=== PATIENT | male | born 1945 | race Caucasian/White ===

== ENCOUNTER 2016-12-20 09:30 | Inpatient (IN) | payer OTHER ==
[2016-12-23] MEDS ORDERED: morphINE SR 15 MG TAB PO ONE (06:00)
[2016-12-23] MEDS ORDERED: CHLORHEXIDINE GLUC HIBICLENS 118 ML BTL TP ONE (06:00)
[2016-12-23] MEDS ORDERED: CEFUROXIME 1,500 MG in NS 50 ML IV ONE (06:00)
[2016-12-23] MEDS ORDERED: PROPOFOL/EMULSION 500 MG/50 ML BOTTLE IV ONE (09:10)
[2016-12-23] MEDS ORDERED: fentaNYL 100 MCG/2 ML INJ ONE ×5 (09:10→15:56)
[2016-12-23] MEDS ORDERED: LIDOCAINE 1% 2 ML INJ ONE (09:58)
[2016-12-23] MEDS ORDERED: LIDOCAINE 1% 5 ML SDV ID PRN (10:12)
[2016-12-23] MEDS ORDERED: LR 1,000 ML IV ONE (10:12)
[2016-12-23] MEDS ORDERED: BACITRACIN 50,000 UNITS/10 ML SYR IRR ONE (10:15)
[2016-12-23] MEDS ORDERED: BUPIVACAINE/EPI 0.25% 30 ML SDV ONE (10:15)
[2016-12-23] MEDS ORDERED: THROMBIN (BOVINE) 20,000 UNIT VIAL TP ONE (10:15)
[2016-12-23] MEDS ORDERED: ROCURONIUM 50 MG/5 ML VIAL ONE (10:19)
[2016-12-23] MEDS ORDERED: DEXAMETHASONE 4 MG/ML VIAL ONE (10:19)
--- NOTE | 2016-12-23 10:59 | CPEKG ---
Heart Rate: 77 RR Interval: 779 P-R Interval: 172 QRSD Interval: 136 QT Interval: 384 QTC Interval: 435 P Paris: 65 QRS Paris: -29 T Wave Paris: 20 EKG Severity - ABNORMAL ECG - EKG Impression: SINUS RHYTHM EKG Impression: RBBB AND LAFB Electronically Signed By: Tonya Acosta 23-Dec-2016 13:42:07
[2016-12-23] MEDS ORDERED: MIDAZOLAM 2 MG/2 ML VIAL ONE ×2 (11:10→16:37)
[2016-12-23] MEDS ORDERED: HYDROCODONE/APAP 5/325 TAB PO PRN (11:28)
[2016-12-23] MEDS ORDERED: ONDANSETRON DISINTEGRATING 4 MG TAB PO PRN (11:29)
[2016-12-23] MEDS ORDERED: DIAZEPAM 5 MG TAB PO PRN (11:29)
[2016-12-23] MEDS ORDERED: MAGNESIUM HYDROXIDE 30 ML UDCUP PO PRN (11:29)
[2016-12-23] MEDS ORDERED: BISACODYL 10 MG SUPP PR PRN (11:29)
[2016-12-23] MEDS ORDERED: TEMAZEPAM 15 MG CAP PO PRN (11:29)
[2016-12-23] MEDS ORDERED: LACTULOSE 20 GM/30 ML UDCUP PO PRN (11:29)
[2016-12-23] MEDS ORDERED: diphenhydrAMINE 25 MG CAP PO PRN (11:29)
[2016-12-23] MEDS ORDERED: NALOXONE HCL 0.4 MG/ML INJ IVP PRN (11:29)
[2016-12-23] MEDS ORDERED: HYDROmorphONE/DILAUDID 6 MG/30 ML PCA IV PRN (11:29)
[2016-12-23] MEDS ORDERED: ONDANSETRON 4 MG/2 ML VIAL IVP PRN (11:29)
[2016-12-23] MEDS ORDERED: DIAZEPAM 10 MG/2 ML SYR IVP PRN (11:29)
[2016-12-23] MEDS ORDERED: NS W/ 20 KCl/L 1,000 ML IV SCH (11:30)
[2016-12-23] MEDS ORDERED: KETAMINE 100 MG/10 ML SYR ONE (11:34)
[2016-12-23] MEDS ORDERED: PROPOFOL 200 MG/20 ML VIAL ONE (14:03)
[2016-12-23] MEDS ORDERED: ONDANSETRON 4 MG/2 ML VIAL ONE (15:00)
[2016-12-23] MEDS ORDERED: HYDROmorphONE/DILAUDID 1 MG/ML SYR ONE (15:56)
[2016-12-23] MEDS ORDERED: MIDAZOLAM 2 MG/2 ML VIAL IVP ONE (16:45)
--- NOTE | 2016-12-23 17:29 | GOP ---
[f rep st] OPERATIVE REPORT DATE OF OPERATION: 12/23/2016 SURGEON: Justine Flores MD ROOF DESIGNER: Robson Haney PA-C. PREOPERATIVE DIAGNOSIS: 1. Lumbar spondylosis. 2. Lumbar foraminal stenosis L4-5, L5-S1. 3. Bilateral lumbosacral radiculopathy. 4. Axial low back pain. 5. Lumbar degenerative disk disease. POSTOPERATIVE DIAGNOSIS: 1. Lumbar spondylosis. 2. Lumbar foraminal stenosis L4-5, L5-S1. 3. Bilateral lumbosacral radiculopathy. 4. Axial low back pain. 5. Lumbar degenerative disk disease. PROCEDURE PERFORMED: 1. Posterolateral intervertebral arthrodesis with decompressions at L4-5, L5-S1 ([id number], [id number]). 2. Posterior segmental instrumentation, L4, L5, S1. 3. Placement of biomechanical intervertebral device L4-5, L5-S1. 4. Spinal stereotaxy, microscope, same incision bone graft harvest. FINDINGS: ESTIMATED BLOOD LOSS: 250 cc. INDICATIONS: The patient is a 71-year-old gentleman with severe axial low back pain, as well as rig ht buttock pain and radiating left leg pain, who had an MRI demonstrating compression on the right a t L4-5, L5-S1 in the neural foramen from the exiting L4 and L5 nerve roots. It was relatively sever e. There was also left-sided compression, worse at the L5-S1 level of the exiting L5 nerve root due to degenerative disk disease at L5-S1 and collapse of the foramen. I suggested a 2-level fusion to address the bilateral foraminal narrowing and bilateral symptoms. I did not think that wide forami notomies would be useful in this case given the collapse of the neural foramen. Also did not feel t hat this would be all that useful with regard to the axial low back pain. I suggested a 2-level L4- 5, L5-S1 fusion. Explained to him the risk of the procedure, including the risk of adjacent segment disease, pseudoarthrosis, continued symptoms, and possible need for additional surgery. He underst ood that a spinal fusion surgery cannot be done and that this was a reasonable approach to try to el iminate the pain that he was suffering from. He understood the risk of continued symptoms, nerve in jury, spinal fluid leak, infection, pseudoarthrosis, and adjacent segment disease, and he did want t o proceed. He had a prior history of prostate cancer and our intention was not to use any bone morp hogenic protein. DESCRIPTION OF PROCEDURE: Patient was taken to the operating room, placed in supine position. Gene ral anesthesia was begun. He was flipped prone onto the Patrick table. Care was taken to pad all p oints of contact. His back was sterilely prepped and draped in the usual fashion. We made a 6-1/2 cm incision above the L4-5, 5-1 interspace. The subcutaneous tissue was dissected using Bovie caute ry down through the fascia, and a subperiosteal dissection was made down the L5-S1 lamina, as well a s the L4 lamina and the inferior L3 lamina. We shot a localizing x-ray. We denuded the facets bila terally at L4-5, 5-1. We preserved the L3-4 facet. We tested Stealth reference frame, and using fr [employer] Stealth stereotaxy, we placed pedicle screws bilaterally at L4, L5, and the sacrum. The L4 screws had a very lateral to medial trajectory because of the L3-4 facet joint. An O-arm spin was m ly, and the right L4 screw went through the pedicle and was slightly lateral as it entered the vert ebral body. While there was good bony purchase from this screw, we did remove it and repositioned i t more medially within the pedicle. We still had a nice lateral to medial angulation on the screw. Another O-arm spin was made, and the screw was in excellent position. They all stimulated greater than 20 milliamps, even the prior L4 screw stimulated greater than 20 milliamps. We placed 55 mm ro ds down over these screws to distract between L4-5 and L5-S1, and got good yazidism of his normal disk height at each level, particularly at L5-S1. We removed all the soft tissue of the bone at L4 -5, 5-1. We harvested the L5 spinous process and lamina for autologous grafting purposes. We harve sted the inferior L4 spinous process for autologous grafting purposes. We introduced operating micr oscope and performed a left hemilaminectomy at L4-5, 5-1. We also undercut the ligamentum flavum an d got a nice central decompression, and we also indirectly got decompression on the right-hand side, both in the foramen and in the lateral recess. We did not perform radical right-sided laminectomie s, however. We decompressed on the left, completely removing the left facet joints at L4-5, 5-1, de stabilizing the spine. We decompressed the exiting L4 and L5 nerve roots at each level, as well as the S1 root as it traversed L5-S1. We then incised the L4-5 disk, removed the disk and the cartilag inous endplates, and we roughened the subchondral bone to create arthrodesis there. We did likewise from a left-sided approach at L5-S1, where we swept the thecal sac and the S1 root medially. We in cised the L5-S1 disk, removed the disk and the cartilaginous endplates. We roughened the subchondra l bone and created an arthrodesis and we sized each space. We chose a 7 x 20 mm device at L5-S1 and 8 x 28 mm device at L4-5. They were packed with graft on demineralized bone matrix. We then place d bony autograft into the disk space at L4-5, 5-1. We expanded each device under fluoroscopic mary nce. These helped restore of lumbar lordosis at L4-5, 5-1, and we were happy with each d evice and its placement. We decorticated all remaining posterolateral bone to create arthrodesis at L4-5, 5-1. We placed bone autograft posterolaterally bilaterally and laid on top of this graft on material bilaterally. All the screws had been torqued to company specification. A subfascial drain was placed and the incision was closed in multiple layers using Vicryl sutures. Running PDS was pl aced in the skin itself. There were no complications. COMPLICATIONS: None. /[id number]/MODL
[2016-12-23] MEDS ORDERED: DIAZEPAM 10 MG/2 ML SYR ONE (17:57)
[2016-12-23] MEDS: traMADol 50 MG TAB PO SCH ×2 (19:08→20:12)
[2016-12-23] MEDS: oxyCODONE IR 5 MG TAB PO PRN (19:13)
[2016-12-23] MEDS: HYDROmorphONE/DILAUDID 1 MG/ML SYR IVP PRN (19:53)
[2016-12-23] MEDS: metFORMIN HCL 500 MG TAB PO SCH (19:53)
[2016-12-23] MEDS: METHOCARBAMOL 750 MG TAB PO PRN (20:10)
[2016-12-23] MEDS: ROSUVASTATIN CALCIUM 10 MG TAB PO SCH (20:10)
[2016-12-23] MEDS: morphINE SR 15 MG TAB PO SCH (20:12)
[2016-12-23] MEDS: FAMOTIDINE 20 MG TAB PO SCH (20:12)
[2016-12-23] MEDS: SENNOSIDES/DOCUSATE SODIUM TAB PO SCH (20:12)
--- NOTE | 2016-12-23 20:45 | GPROG ---
[f rep st] PROGRESS NOTE This is dictated due to the fact that [facility] was down. SUBJECTIVE: Patient is awake and alert. He is complaining of some expected lower back pain. OBJECTIVE: VITAL SIGNS: Afebrile. Vital signs stable. HEENT: Pupils equal, round, reactive to l ight. EOMIs intact. Cranial nerves 2-12 grossly intact. MOTOR: Patient has 5/5 strength in bilat eral lower extremities. ANTHONY is intact and working. Dressing is clean, dry, and intact. ASSESSMENT/PLAN: The patient is a 71-year-old, who is status post TLIF at L4-5, L5-S1. Patient has ANTHONY in place. He should wear brace whenever out of bed. He was seen and evaluated both by myself and Dr. Flores. The patient is in stable condition and has a pending admission to the [facility] or for further postoperative care. /[id number]/MODL
[2016-12-23] MEDS ORDERED: FAMOTIDINE 20 MG/NACL 50 ML IV SCH (21:00)
[2016-12-24] MEDS: HYDROmorphONE/DILAUDID 1 MG/ML SYR IVP PRN ×2 (02:23→04:44)
[2016-12-24] MEDS: oxyCODONE IR 5 MG TAB PO PRN ×3 (04:44→20:00)
[2016-12-24 05:20] LABS: ANION GAP 9 mEq/L (8-16); CARBON DIOXIDE 24 mEq/l (22-31); CHLORIDE 104 mEq/L (97-110); CREATININE 0.9 mg/dL (0.7-1.3); GLOMERULAR FILTRATION RATE > 60; GLUCOSE 194 mg/dL (70-100); POTASSIUM 5.1 mEq/L (3.5-5.2); SODIUM 137 mEq/L (134-144)
[2016-12-24 05:29] LABS: % IMMATURE GRANULYOCYTES 0.5 % (0.0-1.1); ABSOLUTE IMMATURE GRANULOCYTES 0.06 10^3/uL (0.00-0.10); ADD DIFF? NO; ADD MORPH? NO; ADD SCAN? NO; ATYPICAL LYMPHOCYTE FLAG 10 (0-99); FRAGMENT RBC FLAG 0 (0-99); HEMATOCRIT 37.8 % (40.0-51.0); HEMOGLOBIN 12.4 g/dL (13.7-17.5); LEFT SHIFT FLG 0 (0-99); LIPEMIA HEMOLYSIS FLAG 80 (0-99); MEAN CELL HEMOGLOBIN 29.7 pg (27.9-34.1); MEAN CELL HEMOGLOBIN CONCENTR. 32.8 g/dL (32.4-36.7); MEAN CELL VOLUME 90.6 fL (81.5-99.8); MEAN PLATELET VOLUME 10.1 fL (8.7-11.7); PLATELET CLUMPS FLAG 0 (0-99); PLATELET COUNT 222 10^3/uL (150-400); RED BLOOD CELL COUNT 4.17 10^6/uL (4.40-6.38); RED CELL DISTRIBUTION WIDTH 12.9 % (11.5-15.2)
--- NOTE | 2016-12-24 07:23 | NEUSURGPN ---
Date of Surgery: 12/23/16 Post Op Day: 1 Assessment/Plan: Assessment: 71 yo male that is s/p TLIF at L4/5 and L5/S1 POD #1 Plan: -s/p TLIF L4/5 and L5/S1: Pt with expected lower back pain. LLE still with some twitching symptoms as before -post op xrays pending today -continue with ANTHONY at this time -PT/OT pending -brace when out of bed - and bedside as well and updated -call NS with any changes or issues -red flags discussed -pt understands and agrees Subjective: Awake and alert. NAD. Pt with expected lower back pain. No arzate/neck/chest/abd or gu complaints. Objective: AAO x 3, PERRLA/EOMI no droop CN 2-12 grossly intact +lt touch 5/5 BUE/BLE = CDI Neuro Check Frequency: per routine Urinary Catheter in Place: No Catheter Insertion Date: 12/23/16 - Physician Discussed Patient with .: Mark Patient Seen by : Mark Neurosurgery Physical Exam - Vitals, I&O, Labs I and O 12/23/16 12/24/16 12/25/16 05:59 05:59 05:59 Intake Total 2427 Output Total 3010 Balance -583 Weight 57.606 kg Intake: Oral (ml) 200 IV Intake (ml) 1400 IV Infused (ml) 827 NS W/ 20 KCl/L 1,000 ml @ 722 75 mls/hr IV CONT CHANO Rx #:[id number] ceFAZolin 1 GM/DEXTROSE 105 50 ml @ 200 mls/hr IV Q8H CHANO Rx#:[id number] Output: Urine (ml) 2510 Catheter 2510 Estimated Blood Loss (ml) 50 Wound Drainage (ml) 450 Back Patrick Dueñas 450 Vital Signs Temp Pulse Resp BP Pulse Ox 36.9 C 75 16 149/78 H 96 12/24/16 04:00 12/24/16 04:00 12/24/16 04:00 12/24/16 04:00 12/24/16 04:00 Laboratory Results 12/24/16 04:39 12/24/16 04:39 ICD10 Worksheet Patient Problems: Problems Problem Status Onset Arthrodesis status Acute Lumbar radicular pain Acute Lumbar stenosis Acute - ICD10 Problem Qualifiers (1) Lumbar stenosis (2) Lumbar radicular pain (3) Arthrodesis status
[2016-12-24] MEDS: traMADol 50 MG TAB PO SCH ×3 (08:22→20:00)
[2016-12-24] MEDS: FAMOTIDINE 20 MG TAB PO SCH ×2 (08:22→20:01)
[2016-12-24] MEDS: CETIRIZINE 10 MG TAB PO SCH (08:22)
[2016-12-24] MEDS: SENNOSIDES/DOCUSATE SODIUM TAB PO SCH ×2 (08:22→20:00)
[2016-12-24] MEDS: metFORMIN HCL 500 MG TAB PO SCH ×2 (08:22→17:29)
[2016-12-24] MEDS: morphINE SR 15 MG TAB PO SCH ×2 (08:22→20:00)
[2016-12-24] MEDS ORDERED: FAMOTIDINE 20 MG TAB PO SCH (09:00)
[2016-12-24] MEDS: ACETAMINOPHEN 325 MG TAB PO PRN (13:32)
[2016-12-24] MEDS: ROSUVASTATIN CALCIUM 10 MG TAB PO SCH (20:00)
[2016-12-25] MEDS: ACETAMINOPHEN 325 MG TAB PO PRN ×2 (05:12→09:06)
[2016-12-25] MEDS: oxyCODONE IR 5 MG TAB PO PRN ×2 (05:12→17:58)
--- NOTE | 2016-12-25 08:42 | NEUSURGPN ---
Assessment/Plan: Assessment: 71 yo male that is s/p TLIF at L4/5 and L5/S1 POD #2 Plan: -s/p TLIF L4/5 and L5/S1: Pt with expected lower back pain. LLE still with some twitching symptoms as before -post op xrays show stable hardware -DC ANTHONY drain -PT/OT -brace when out of bed -call NS with any changes or issues -Dispo: later today vs tomorrow pending clinical course Subjective: Pt resting in bed, states he is doing ok. at bedside concerned about being able to help him at home. Objective: AAOx3 NAD VSS MAEx4 Motor 5/5 BLE Incision cdi JPx1 Urinary Catheter in Place: No Catheter Insertion Date: 12/23/16 - Physician Discussed Patient with : Mark Neurosurgery Physical Exam - Vitals, I&O, Labs I and O 12/24/16 12/25/16 12/26/16 05:59 05:59 05:59 Intake Total 2427 300 Output Total 3010 1570 Balance -583 -1270 Weight 57.606 kg Intake: Oral (ml) 200 300 IV Intake (ml) 1400 IV Infused (ml) 827 NS W/ 20 KCl/L 1,000 ml @ 722 75 mls/hr IV CONT CHANO Rx #:[id number] ceFAZolin 1 GM/DEXTROSE 105 50 ml @ 200 mls/hr IV Q8H CHANO Rx#:[id number] Output: Urine (ml) 2510 1250 Catheter 2510 Urinal 1250 Estimated Blood Loss (ml) 50 Wound Drainage (ml) 450 320 Back Patrick Dueñas 450 320 Other: Number of Voids Urinal 2 Vital Signs Temp Pulse Resp BP Pulse Ox 36.8 C 74 18 123/69 H 96 12/25/16 08:00 12/25/16 08:00 12/25/16 08:00 12/25/16 08:00 12/25/16 08:00 Laboratory Results 12/24/16 04:39 12/24/16 04:39 ICD10 Worksheet Patient Problems: Problems Problem Status Onset Arthrodesis status Acute Lumbar radicular pain Acute Lumbar stenosis Acute
[2016-12-25] MEDS: traMADol 50 MG TAB PO SCH ×3 (09:05→21:55)
[2016-12-25] MEDS: morphINE SR 15 MG TAB PO SCH ×2 (09:05→21:54)
[2016-12-25] MEDS: CETIRIZINE 10 MG TAB PO SCH (09:06)
[2016-12-25] MEDS: SENNOSIDES/DOCUSATE SODIUM TAB PO SCH ×2 (09:06→21:55)
[2016-12-25] MEDS: FAMOTIDINE 20 MG TAB PO SCH ×2 (09:06→21:53)
[2016-12-25] MEDS: metFORMIN HCL 500 MG TAB PO SCH ×2 (09:06→16:52)
[2016-12-25] MEDS: POLYETHYLENE GLYCOL 3350 17 GM PKT PO PRN (09:07)
[2016-12-25] MEDS: METHOCARBAMOL 750 MG TAB PO PRN (16:53)
[2016-12-25] MEDS: ROSUVASTATIN CALCIUM 10 MG TAB PO SCH (21:54)
[2016-12-26] MEDS: oxyCODONE IR 5 MG TAB PO PRN ×2 (05:34→11:45)
[2016-12-26 08:08] VITALS: BP 151/76; PULSE 90; RESP 16; TEMP 99.3; O2SAT 93
[2016-12-26] MEDS: traMADol 50 MG TAB PO SCH (08:16)
[2016-12-26] MEDS: morphINE SR 15 MG TAB PO SCH (08:16)
[2016-12-26] MEDS: metFORMIN HCL 500 MG TAB PO SCH (08:17)
[2016-12-26] MEDS: CETIRIZINE 10 MG TAB PO SCH (08:17)
[2016-12-26] MEDS: POLYETHYLENE GLYCOL 3350 17 GM PKT PO PRN ×2 (08:17→08:22)
[2016-12-26] MEDS: METHOCARBAMOL 750 MG TAB PO PRN ×2 (08:17→11:45)
[2016-12-26] MEDS: SENNOSIDES/DOCUSATE SODIUM TAB PO SCH (08:17)
[2016-12-26] MEDS: FAMOTIDINE 20 MG TAB PO SCH (08:17)
[2016-12-26] MEDS ORDERED: ENOXAPARIN 40 MG/0.4 ML SYR SC SCH (09:00)
--- NOTE | 2016-12-26 09:52 | SOAPPROG ---
DEANAP Progress Note Assessment/Plan: Assessment: Assessment: 71 yo male that is s/p TLIF at L4/5 and L5/S1 POD #3 Plan: -s/p TLIF L4/5 and L5/S1: Pt with expected lower back pain. -post op xrays show stable hardware -brace when out of bed -Patient states wants to go today: will d/c -Scripts sent to pharmacy -F/u 2 weeks for incision check 12/26/16 09:49 Subjective: States 8-9/10 but sleeping easily, sitting comfortably in chair and refusing some PRN robaxin and oxycodone when offered. No pain when sitting only when up and moving. Tolerating diet, ambulating brace on. No leg pain. Original back pain resolved. Discussed d/c wih patient and . They are comfortable going home and he insists on d/c. Discussed keeping up with medications particularly robaxin, all questions answered and pleased with plan Objective: Vital Signs Temp Pulse Resp BP Pulse Ox 37.4 C 90 16 151/76 H 93 12/26/16 08:00 12/26/16 08:00 12/26/16 08:00 12/26/16 08:00 12/26/16 08:00 Laboratory Results 12/24/16 04:39 12/24/16 04:39 12/25/16 12/26/16 12/27/16 05:59 05:59 05:59 Intake Total 300 300 Output Total 1570 600 Balance -1270 -300 AandOx3, PERRL, EOMI, MAEWx 4 5/5, +LT, dressing c/d/i - Pending Discharge Pending Discharge Within 24 Hours: Yes Pending Discharge Date: 12/27/16 Pending Discharge Time: 11:00 ICD10 Worksheet Patient Problems: Problems Problem Status Onset Arthrodesis status Acute Lumbar radicular pain Acute Lumbar stenosis Acute
--- NOTE | 2016-12-26 15:06 | PDIAF ---
- Diagnosis Code Status: Full Code - Medication Management Discharge Medications: Medications to Continue on Transfer Aspirin EC [Aspirin EC 81 mg (*)] 81 mg PO DAILY 11/26/16 [Last Taken 12/13/16] Cetirizine [ZyrTEC 10 mg (*)] 10 mg PO DAILY 11/26/16 [Last Taken Unknown] Multivitamins [Multivitamin (*)] 1 each PO DAILY 11/26/16 [Last Taken 12/13/16] Ranitidine HCl [Zantac] 150 mg PO DAILY 11/26/16 [Last Taken Unknown] Rosuvastatin Calcium [Crestor 5mg] 5 mg PO HS 11/26/16 [Last Taken 12/22/16] metFORMIN HCL [Glucophage 500 mg (*)] 500 mg PO BIDMEAL 11/26/16 [Last Taken ] traMADol [Ultram 50 mg (*)] 50 mg PO BID@1800,2100 11/26/16 [Last Taken Unknown] traMADol [Ultram 50 mg (*)] 100 mg PO DAILY@08 11/26/16 [Last Taken 12/22/16] Methocarbamol [Robaxin 750 mg (*)] 750 mg PO QID PRN #0 tab 12/26/16 [Last Taken Unknown] Polyethylene Glycol 3350 [Miralax 17 gm (*)] 17 gm PO DAILY PRN #30 pkt [Last Taken Unknown] Sennosides/Docusate Sodium [Senokot-S] 1 - 2 tab PO BID #60 tab 12/26/16 [Last Taken Unknown] morphINE SR [Ms Contin/Oramorph 15 mg (*)] 15 mg PO BID #0 tab 12/26/16 [Last Taken Unknown] oxyCODONE IR [Oxycodone Ir (*)] 5 mg PO Q3HRS PRN #90 tab 12/26/16 [Last Taken Unknown] Discharge Medications: Refer to the Discharge Home Medication list for PRN reason. - Orders Services needed: Home Care, Registered Nurse, Physical Therapy, Occupational Therapy Home Care Face to Face: I certify that this patient was under my care and that I had the required [id number] encounter meeting the encounter requirements on the discharge day. My findings support the fact that the patient is homebound as defined in CMS Chapter 7 Medicare Benefits Manual 30.1.1, The condition of the patient is such that there exists a normal inability to leave home and consequently, leaving home would require a considerable and taxing effort. Diet Recommendation: no restrictions on diet Diet Texture: Regular Texture Diet Additional: lso brace when out of bed - Follow Up Care Current Providers and Referrals: Dyana Flores MD [Medical Doctor] - Jeri Gandhi [Primary Care Provider] -
== END 2016-12-26 12:05 | disposition home health service (06) | DRG 460 ==
LOC: F3N 12-23 09:46
PROVIDERS: ADMIT Neurological Surgery; ATTEND Neurological Surgery
PROC: 0SB20ZZ Excision of Lumbar Vertebral Disc, Open Approach (ICD-10-PCS; principal; 2016-12-23 11:30)
PROC: 0SG3071 Fusion of Lumbosacral Joint with Autologous Tissue Substitute, Posterior Approach, Posterior Column, Open Approach (ICD-10-PCS; principal; 2016-12-23 11:30)
PROC: 00NY0ZZ Release Lumbar Spinal Cord, Open Approach (ICD-10-PCS; principal; 2016-12-23 11:30)
PROC: 0SG0071 Fusion of Lumbar Vertebral Joint with Autologous Tissue Substitute, Posterior Approach, Posterior Column, Open Approach (ICD-10-PCS; principal; 2016-12-23 11:30)
PROC: 0SG30AJ Fusion of Lumbosacral Joint with Interbody Fusion Device, Posterior Approach, Anterior Column, Open Approach (ICD-10-PCS; principal; 2016-12-23 11:30)
DX: M43.16 Spondylolisthesis, lumbar region (principal); M48.06 Spinal stenosis, lumbar region; M51.36 Other intervertebral disc degeneration, lumbar region; I25.10 Atherosclerotic heart disease of native coronary artery without angina pectoris; Z95.5 Presence of coronary angioplasty implant and graft
CPT/HCPCS: 97116-GP; 97161-GP; 97166-GO; C1713; G8978-GP-CJ; G8979-GP-CI; G8980-GP-CI; G8987-GO-CI; G8988-GO-CI; G8989-GO-CI; J0690; J0697; J1100; J1170; J1650; J2250; J2405; J2704; J3010

== ENCOUNTER → 2017-02-17 | Outpatient (CLI) | payer OTHER | LOC: FIMAGING 13:11 | PROVIDERS: ATTEND Nurse Practitioner | DX: M79.604 Pain in right leg (principal); M79.605 Pain in left leg; Z98.1 Arthrodesis status ==

== ENCOUNTER → 2017-04-29 | Outpatient (CLI) | payer OTHER | LOC: FLAB 10:43 | PROVIDERS: ATTEND Nurse Practitioner | DX: Z08 Encounter for follow-up examination after completed treatment for malignant neoplasm (principal); Z98.1 Arthrodesis status ==

== ENCOUNTER → 2017-07-20 | Outpatient (CLI) | payer OTHER | LOC: FIMAGING 10:37 | PROVIDERS: ATTEND Nurse Practitioner | DX: Z98.1 Arthrodesis status (principal) ==

== ENCOUNTER → 2018-01-20 | Outpatient (CLI) | payer OTHER | LOC: FIMAGING 15:45 | PROVIDERS: ATTEND Nurse Practitioner | DX: M54.5 Low back pain (principal); Z98.1 Arthrodesis status ==

== ENCOUNTER → 2018-05-20 | Outpatient (CLI) | payer OTHER | LOC: FIMAGING 10:15 | PROVIDERS: ATTEND Nurse Practitioner | DX: M41.85 Other forms of scoliosis, thoracolumbar region (principal); M43.16 Spondylolisthesis, lumbar region ==

== ENCOUNTER 2018-05-25 08:15 | Inpatient (IN) | payer OTHER ==
--- NOTE | 2018-05-25 06:52 | PDHPUP ---
History & Physical Update H&P update statement: This history and physical update is based on an assessment of the patient which was completed after admission or registration (within 24 hours), but prior to the surgery/procedure. H&P update: H&P reviewed & patient examined, no change in patient's condition since H&P completed
[~2018-05-25 08:15] MED LIST: CETIRIZINE 10 MG TAB PO PRN; traMADol 50 MG TAB PO PRN
[2018-05-25] MEDS ORDERED: BACITRACIN 50,000 UNITS/10 ML SYR IRR ONE (09:04)
[2018-05-25] MEDS ORDERED: THROMBIN (BOVINE) 20,000 UNIT VIAL TP ONE (09:04)
[2018-05-25] MEDS ORDERED: CHLORHEXIDINE GLUC HIBICLENS 118 ML BTL TP ONE (09:04)
[2018-05-25] MEDS ORDERED: EPINEPHrine 1 MG/ML INJ ONE (09:04)
[2018-05-25] MEDS ORDERED: BUPIVACAINE 0.25% 30 ML SDV ONE (09:04)
[2018-05-25] MEDS ORDERED: ceFAZolin 2 GM/DEXTROSE 100 ML IV ONE (09:34)
[2018-05-25] MEDS ORDERED: GABAPENTIN 300 MG CAP PO ONE (09:34)
[2018-05-25] MEDS ORDERED: ACETAMINOPHEN 500 MG TAB PO ONE (09:34)
[2018-05-25] MEDS ORDERED: LR 1,000 ML IV ONE (09:35)
--- NOTE | 2018-05-25 11:19 | PDANEPAE ---
ANE History of Present Illness ACD and F C 3-4 Zero P C 4-5 Posterior fusion c3 to 7 ANE Past Medical History - Cardiovascular History Hx Hypertension: No Hx Arrhythmias: No Hx Chest Pain: No Hx Coronary Artery / Peripheral Vascular Disease: Yes Hx CHF / Valvular Disease: No Hx Palpitations: No Cardiovascular History Comment: STENT 2014 - Pulmonary History Hx COPD: No Hx Asthma/Reactive Airway Disease: No Hx Recent Upper Respiratory Infection: No Hx Oxygen in Use at Home: No Hx Sleep Apnea: No Sleep Apnea Screening Result - Last Documented: Negative - Neurologic History Hx Cerebrovascular Accident: No Hx Seizures: No Hx Dementia: No Neurologic History Comment: 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 - Endocrine History Hx Diabetes: Yes Hypothyroid: No Hyperthyroid: No Obesity: no Endocrine History Comment: TYPE 2 DIABETES - Renal History Hx Renal Disorders: No Renal History Comment: PREV TURP - Liver History Hx Hepatic Disorders: No - Neurological & Psychiatric Hx Hx Neurological and Psychiatric Disorders: No - Cancer History Hx Cancer: Yes Cancer History Comment: PROSTATE - Congenital Disorder History Hx Congenital Disorders: No - GI History GERD: no, mild Hx Gastrointestinal Disorders: Yes Gastrointestinal History Comment: USES OTC TO REDUCE ACID WHEN TAKING ANTINFLAMMATORY MEDICATIONS - Other Health History Other Health History: LT LOWER EXT TREMOR WHEN LAYS DOWN IT STOPS 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 DDD. STENOSIS - Chronic Pain History Chronic Pain: Yes (NECK,SHLDR TO WRIST) - Surgical History Prior Surgeries: BILATERAL CATARACTS 2018. TLIF 11/2016. CARDIAC STENT 2014. LT ING HERNIA. CERVICAL FUSION. TURP ANE Review of Systems Review of systems is: negative Review of Systems: - Exercise capacity METS (RN): 4 METS ANE Patient History - Allergies Allergies/Adverse Reactions: Penicillins Allergy (Unknown, Verified 11/26/16 15:11) Unknown - Home Medications Home Medications: Aspirin EC [Aspirin EC 81 mg (*)] 81 mg PO DAILY 11/26/16 [Last Taken 05/18/18] Rosuvastatin Calcium [Crestor 5mg] 5 mg PO HS 11/26/16 [Last Taken 05/24/18 19: 00] metFORMIN HCL [Glucophage 500 mg (*)] 500 mg PO BIDMEAL 11/26/16 [Last Taken 08:00] traMADol [Ultram 50 mg (*)] 50 mg PO BID PRN 11/26/16 [Last Taken 05/25/18 06:00 ] Carbidopa/Levodopa 25/100Mg [Sinemet 25/100 MG (*)] 2 tab PO TID@,, [Last Taken 05/25/18 10:30] Cetirizine [ZyrTEC 10 mg (*)] 10 mg PO DAILY PRN 05/10/18 [Last Taken 05/18/18] Diclofenac Sodium [Voltaren 75 MG (*)] 75 mg PO BID 05/10/18 [Last Taken ] Multivitamins [Multivitamin (*)] 1 each PO DAILY 05/10/18 [Last Taken 05/18/18] rOPINIRole HCL [Ropinirole ER] 8 mg PO DAILY 05/10/18 [Last Taken 05/25/18 08:00 ] Omeprazole [Omeprazole] 20 mg PO DAILY 05/25/18 [Last Taken 05/25/18 06:00] - NPO status NPO Status: no food or drink >8 hours NPO Since - Liquids (Date): 05/25/18 NPO Since - Liquids (Time): 06:00 NPO Since - Solids (Date): 05/24/18 NPO Since - Solids (Time): 23:30 - Smoking Hx Smoking Status: Former smoker ANE Labs/Vital Signs - Vital Signs Blood Pressure: 140/79 Heart Rate: 47 Respiratory Rate: 12 O2 Sat (%): 96 Height: 162.56 cm Weight: 58.967 kg ANE Physical Exam - Airway Neck exam: decreased ROM Mallampati Score: Class 2 Mouth exam: normal dental/mouth exam, poor dentition - Pulmonary Pulmonary: no respiratory distress, no rales or rhonchi - Cardiovascular Cardiovascular: regular rate and rhythym, no murmur, rub, or gallop - ASA Status ASA Status: III ANE Anesthesia Plan Anesthesia Plan: general endotracheal anesthesia Specialized Airway: video laryngoscope
[2018-05-25] MEDS ORDERED: MIDAZOLAM 2 MG/2 ML VIAL IVP ONE (11:25)
[2018-05-25] MEDS ORDERED: MIDAZOLAM 2 MG/2 ML VIAL ONE (11:28)
[2018-05-25] MEDS ORDERED: PROPOFOL/EMULSION 500 MG/50 ML BOTTLE IV ONE ×4 (11:38→16:04)
[2018-05-25] MEDS ORDERED: fentaNYL 250 MCG/5 ML INJ ONE ×3 (11:38→16:04)
[2018-05-25] MEDS ORDERED: SUCCINYLCHOLINE CHLORIDE 200 MG/10 ML SYR IVP ONE ×2 (11:46→14:36)
[2018-05-25] MEDS ORDERED: diphenhydrAMINE 25 MG CAP PO PRN (12:16)
[2018-05-25] MEDS ORDERED: BISACODYL 10 MG SUPP PR PRN (12:16)
[2018-05-25] MEDS ORDERED: HYDROCODONE/APAP 5/325 TAB PO PRN (12:16)
[2018-05-25] MEDS ORDERED: ONDANSETRON 4 MG/2 ML VIAL IVP PRN ×2 (12:16→17:31)
[2018-05-25] MEDS ORDERED: POLYETHYLENE GLYCOL 3350 17 GM PKT PO PRN (12:16)
[2018-05-25] MEDS ORDERED: METHOCARBAMOL 750 MG TAB PO PRN (12:16)
[2018-05-25] MEDS ORDERED: morphINE PCA 30 MG/30 ML PCA IV PRN (12:16)
[2018-05-25] MEDS ORDERED: NALOXONE HCL 0.4 MG/ML INJ IVP PRN ×2 (12:16→17:31)
[2018-05-25] MEDS ORDERED: HYDROmorphONE/DILAUDID 1 MG/ML INJ IVP PRN (12:16)
[2018-05-25] MEDS ORDERED: MAGNESIUM HYDROXIDE 30 ML UDCUP PO PRN (12:16)
[2018-05-25] MEDS ORDERED: LACTULOSE 20 GM/30 ML UDCUP PO PRN (12:16)
[2018-05-25] MEDS ORDERED: ONDANSETRON DISINTEGRATING 4 MG TAB PO PRN (12:16)
[2018-05-25] MEDS ORDERED: fentaNYL 100 MCG/2 ML INJ ONE (12:20)
[2018-05-25] MEDS ORDERED: NS 1,000 ML IV SCH (12:30)
[2018-05-25] MEDS ORDERED: ROCURONIUM 50 MG/5 ML VIAL ONE (14:37)
[2018-05-25] MEDS ORDERED: PETROLAT,WHT/MIN OIL/SOD CHL 3.5 GM OPHT.OINT ONE (14:47)
[2018-05-25] MEDS ORDERED: ceFAZolin 1 GM VIAL ONE (15:45)
[2018-05-25] MEDS ORDERED: HYDROmorphONE/DILAUDID 2 MG/ML INJ ONE (16:53)
[2018-05-25] MEDS ORDERED: ONDANSETRON 4 MG/2 ML VIAL ONE (17:25)
[2018-05-25] MEDS ORDERED: HYDROmorphONE/DILAUDID 2 MG/ML INJ IVP PRN (17:31)
[2018-05-25] MEDS ORDERED: fentaNYL 100 MCG/2 ML INJ IVP PRN (17:31)
[2018-05-25] MEDS ORDERED: PROMETHAZINE HCL 25 MG/ML INJ IVP PRN (17:31)
[2018-05-25] MEDS ORDERED: DIAZEPAM 5 MG/ML 1 ML SYR IVP PRN (17:31)
--- NOTE | 2018-05-25 18:08 | POSTOPPROG ---
Post Op Note Date of Operation: 05/25/18 Surgeon: Dyana Flores Engineer Steam: [place]ina Anesthesiologist: Fan Anesthesia: GET(General Endotracheal), Local (Specify) Pre-op Diagnosis: cervical stenosis, instability, cord compression Post-op Diagnosis: cervical stenosis, instability, cord compression Indication: RUE pain, neck pain Procedure: ACDF C3-C5 with PSF C3-C7 Findings: none Inf/Abcess present in the surg proc area at time of surgery?: No Depth: Deep Incisional (Fascial) EBL: 100-500 Total fluids administered: see anesthesia record Complications: none Drains: Patrick Dueñas (posterior cervical)
[2018-05-25] MEDS ORDERED: D50W 25 GM/50 ML SYR IVP PRN (18:11)
--- NOTE | 2018-05-25 18:11 | SOAPPROG ---
SOAP Progress Note Assessment/Plan: Post Op Visit S: Awake and alert. NAD. Pt with expected neck pain O: AFVSS/PERRLA/EOMI no droop CN 2-12 grossly intact +lt touch 5/5 BUE/BLE = CDI x 2 A/P: 73 yo male that is s/p ACDF C3/4 and C4/5 with PSF C3-C7 -orders in place -call with any questions or concerns -wear collar as directed -pt seen by Dr Flores as well -xrays in am -PT/OT/ST ordered 05/25/18 18:08 Objective: Vital Signs Temp Pulse Resp BP Pulse Ox 37.1 C 47 L 12 140/79 H 96 05/25/18 10:58 05/25/18 11:22 05/25/18 11:22 05/25/18 11:22 05/25/18 11:22 ICD10 Worksheet Patient Problems: Problems Problem Status Onset Cervical radicular pain Acute Cervical spinal stenosis Acute Arthrodesis status Acute Lumbar radicular pain Acute Lumbar stenosis Acute - ICD10 Problem Qualifiers (1) Cervical spinal stenosis (2) Cervical radicular pain
[2018-05-25] MEDS ORDERED: LABETALOL HCL 5 MG/ML 20 ML MDV IVP PRN (18:53)
[2018-05-25] MEDS: FAMOTIDINE 20 MG TAB PO SCH (20:46)
[2018-05-25] MEDS: ceFAZolin 2 GM/DEXTROSE 100 ML IV SCH (20:46)
[2018-05-25] MEDS: SENNOSIDES/DOCUSATE SODIUM TAB PO SCH (20:46)
[2018-05-25] MEDS: oxyCODONE IR 5 MG TAB PO PRN (21:41)
[2018-05-25] MEDS: ACETAMINOPHEN 500 MG TAB PO SCH ×2 (21:42→22:12)
[2018-05-25] MEDS: GABAPENTIN 300 MG CAP PO SCH ×2 (21:42→22:13)
[2018-05-25] MEDS: INSULIN REGULAR HUMAN 100 UNIT/ML UNIT SC SCH (21:42)
[2018-05-25] MEDS: CARBIDOPA/LEVODOPA 25 MG/100 MG TAB PO SCH (22:12)
[2018-05-25] MEDS: metFORMIN HCL 500 MG TAB PO SCH (22:12)
[2018-05-25] MEDS: ROPINIROLE HCL 8 MG PO SCH (22:12)
[2018-05-26] MEDS: ACETAMINOPHEN 500 MG TAB PO SCH ×3 (05:05→21:35)
[2018-05-26] MEDS: ceFAZolin 2 GM/DEXTROSE 100 ML IV SCH (05:05)
[2018-05-26] MEDS: GABAPENTIN 300 MG CAP PO SCH ×4 (05:08→21:36)
[2018-05-26 05:53] LABS: PLATELET COUNT 232 10^3/uL (150-400)
[2018-05-26] MEDS: CARBIDOPA/LEVODOPA 25 MG/100 MG TAB PO SCH ×3 (06:31→17:45)
--- NOTE | 2018-05-26 06:34 | GOP ---
DATE OF OPERATION: 05/25/2018 SURGEON: Justine Flores MD NEUROSURGEON: Justine Flores MD ELECTRONIC PAGE MAKEUP SYSTEM OPERATOR: Robson Haney PA-C PREOPERATIVE DIAGNOSIS: Cervical spondylosis. Cervical stenosis. Prior cervical fusion C5-6 and C6 -7. Right cervical radiculopathy. 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 POSTOPERATIVE DIAGNOSIS: Cervical spondylosis. Cervical stenosis. Prior cervical fusion C5-6 and C 6-7. Right cervical radiculopathy. 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 PROCEDURE PERFORMED: Posterior cervical fusion C3, C4, C5, C6, C7 (30160, 14340 x3), same incision b one graft harvest, right cervical foraminotomy and decompression of the exiting C6 nerve root at C5-6 on the right-hand side with facetectomy, spinal stereotaxy, posterior cervical segmental instrumenta tion C3, C4, C5, C7. FINDINGS: ESTIMATED BLOOD LOSS: 150 cc. INDICATIONS: For the procedure: Please see the accompanying dictation for prior surgery on the same patient, the same day, for the indications for this procedure. DESCRIPTION OF PROCEDURE: The patient was placed in the [place] head frame after the anterior proce dure was done and he was then flipped onto the Patrick table. It was a different operating room tab e. He was carefully positioned. His arms were tucked at his sides, and the head was fixed to the [facility] table with the neck in a relatively neutral position and occiput flexed. He was sterilely prep ped and draped in the usual fashion. We opened skin in the midline. The patient had desired for me to remove a small nodule in the right suboccipital region in the area of our incision, and I told crispin t we would do this. I thought it was actually a subcutaneous lymph node. However, after prepping th e patient and carefully looking at his skin, it appeared that this actually could be a sebaceous cyst . There were telltale signs of a single hair follicle that may communicate with the subcutaneous nod ule. There was nothing expressible. It was not a clear open comedone present, but I thought there wa s actually a possible connection of this subcutaneous mass to the outside skin, and I therefore aband oned any thoughts of removing this mass. I thought it would contaminate the surgical field. The inc ision, however, was right adjacent to it, although we never entered the mass during the procedure. W e did have to be careful about how the skin was resutured closed in this region because of the mass, again with the assumption being that it could be a contaminated sebaceous cyst. Nevertheless, we mad e a midline incision, avoiding the mass. The subcutaneous tissue was dissected using Bovie cautery d own through the fascia, and a subperiosteal dissection was made down the inferior C2 lamina. The C3, C4, C5, C6, C7 lamina was exposed. The rostral aspect of T1 was exposed. There were hypertrophic a nd arthritic facet joints on the right at C3-4, C4-5, and even C5-6, consistent with my presumption o f pseudarthrosis. We denuded these hypertrophic facet joints. There were similar findings on the le ft, but the right side was much worse. We attached the [place] reference frame to the C7 spinous pro cess, performed an O-arm spin, and using frameless [place] stereotaxy, placed pedicle screws bilatera lly at C7. They were in excellent position. There was good bony purchase. We then placed lateral m ass screws at C3, C4, and C5. We had considered placing them at C6-7, but on the lateral mass trajec tory at C6 combined with the C7 pedicle screws, it was unfavorable, and we decided to leave them out at C6. We performed an O-arm spin after placing the lateral mass screws. All the screws were in exc ellent position except for the right C4 screw. It had migrated just rostral into the C3-4 facet join t. We therefore removed this screw and simply replaced it lower in the lateral mass, and I was happy with its final position. We then harvested the spinous processes for autologous grafting purposes a nd decorticated all posterolateral bone from C3-C7 to get a posterolateral arthrodesis at C3-4, C4-5, C5-6, C6-7. We then performed a right-sided foraminotomy at C5-6, performed a lateral laminotomy, a nd then a partial facetectomy following the C6 nerve root all the way out into the neural foramen, an d there was foraminal stenosis to the right C6 nerve root. It was totally decompressed after the for aminotomy was completed. We then placed curvilinear rods down over the . They were about 55 mm in length, and we increased the bend in the stephanie to fit the lateral mass to the pedicle screw tr ajectories. We placed cap screws down over these rods and torqued them according to company specific ation at each level. We then placed bone autograft and BMP posterolaterally bilaterally. Most of bon e autograft was placed in the left C5-C6 to try to get arthrodesis of the pseudoarthrosis level. A s ubfascial drain was placed and tunneled inferiorly. We then closed the incision in multiple layers u sing Vicryl sutures. Steri-Strips were applied to the skin. The patient was reversed from anesthesi a, extubated, and transferred to the recovery room in stable condition. There were no complications. COMPLICATIONS: None. /[id number]/MODL
--- NOTE | 2018-05-26 07:41 | GOP ---
DATE OF OPERATION: SURGEON: Justine Flores MD NEUROSURGEON: Justine Flores MD. RETAIL SALES CLERK: Robson Haney PA-C. PREOPERATIVE DIAGNOSIS: Cervical spondylosis, prior anterior cervical diskectomy and fusion at C5-6, C6-7, probable pseudarthrosis at C5-6, severe right cervical radiculopathy, cervical stenosis C3-4, C4-5. POSTOPERATIVE DIAGNOSIS: Cervical spondylosis, prior anterior cervical diskectomy and fusion at C5-6 , C6-7, probable pseudarthrosis at C5-6, severe right cervical radiculopathy, cervical stenosis C3-4, C4-5. PROCEDURE PERFORMED: Anterior cervical diskectomy C3-4, C4-5 with arthrodesis and decompression at t hese 2 levels (02217, [id number]), removal of anterior instrumentation at C5, placement of biomechanical i ntervertebral device C3-4, C4-5, anterior cervical plate at C3, C4, C5 ([id number]), microscope. FINDINGS: ESTIMATED BLOOD LOSS: 50 cc. INDICATIONS: The patient is an elderly gentleman with Parkinson disease who has undergone prior spin e surgery with good results, who had a prior ACDF at C5-6, C6-7, and he developed terrible pain in th e right arm. An MRI demonstrated a large left disk herniation at C3-4, but there was evidence of for aminal stenosis at C3-4, C4-5. The largest disk herniation was actually on the left at C4-5. There was evidence of pseudoarthrosis on his x-ray, and I felt that he probably had a pseudoarthrosis at C5 -6, although it was stable, but there was some right foraminal stenosis. I suggested an anterior cer vical diskectomy and fusion at C3-4, C4-5, followed by posterior cervical fusion from C3 to C7 to ens ure that we achieved arthrodesis at both of the new levels C3-4, C4-5, but also at the level of the s uspected pseudarthrosis. The risks of nerve injury, spinal fluid leak, major vascular injury, esopha geal injury, carotid injury, recurrent laryngeal nerve injury, pseudoarthrosis and the need for addit ional surgery, as well as the risk of severe dysphagia were discussed. He knew these were possibilit ies. He wanted to proceed despite the risks. DESCRIPTION OF PROCEDURE: The patient was taken to the operating room, placed in supine position. G eneral anesthesia was begun. He was placed on the operating room table in the supine position. A mi dline shoulder roll was placed. Care was taken to pad all points of contact. His neck was sterilely prepped and draped in the usual fashion, and we made a transverse incision in the rostral neck creas e on the right-hand side. The subcutaneous tissue was dissecting out using the plasma blade down thr ough the platysma, and then we used a combination of sharp and blunt dissection medial to the sternoc leidomastoid and lateral to the strap muscles to work our way down to the prevertebral space. The pr ior plate and its hardware were exposed. We then exposed the 2 cervical levels above the plate, C3-4 , C4-5. We mobilized his esophagus up off the prior plate, and we dissected the scar tissue off the plate across C5. We removed the screws from the vertebral body at C5. We then took a carbide drill bit and cut across the [place] plate and removed the rostral half of the plate using large amounts of irrigation. This allowed exposure of the 2 rostral screws for C5 and might facilitate our new hardwa re. After taking time to do this, we then prepared the ventral surface of the vertebral body for acc eptance of our new plate from C3 to C4 to C5. We placed distraction pins at C3 and C5, distracted C3 to C5, and then removed the disks at C3-4, C4-5. We removed the disks completely and the cartilagin ous endplates. At C3-4, we drilled and harvested subchondral bone for autologous grafting purposes. We then opened the posterior longitudinal ligament, and under the microscope, we decompressed the th ecal sac and the neural foramen on both sides, identified the exiting C4 nerve roots. it was a strai ght forward dissection. His vertebral bodies were somewhat small, so we chose the smaller interverte bral devices manufactured by [employer]. We chose a 7 x 14 x 11 mm anatomic PTC cage. It was inserte d at C3-4 after being packed with large amounts of bone autograft. We then did likewise at C4-5 wher e we removed the disk and the cartilaginous endplates. We drilled and harvested subchondral bone to create arthrodesis at this level. We opened the posterior longitudinal ligament and decompressed the thecal sac. At this level, there was a very large left-sided disk herniation, but there was also fo raminal stenosis on the patient's right-hand side, and we treated this and decompressed the exiting C 5 nerve roots. We then chose a 6 mm x 11 x 14 mm anatomic PTC cage by [employer] and packed it with a utologous bone dust and inserted it at C5-6. I was happy with the fit of these implants. I chose a 39 mm plate. It was a [employer]pex [employer] Zevo plate, and sat it across the spine from C3 down to C5. We used 15 mm screws. The screw on the surgeon's right side, but the patient's left side at C5 on x-ray otilia eared slightly long. Because of the patient's anatomy, this screw was removed and wasted. It was a bicortical screws. It was 15 mm, and we replaced it with a 13 mm screw that looked better. We were happy with this. We locked all the screws according to company specification and verified this with the people in the room. We then achieved meticulous hemostasis, placed some Marcaine with epinephrin e in the prevertebral space, and then closed the incision in multiple layers using Vicryl sutures. S gary-Strips were applied the skin, and a dressing was applied, and this concluded procedure #1. COMPLICATIONS: None. /[id number]/MODL
--- NOTE | 2018-05-26 08:02 | NEUSURGPN ---
Date of Surgery: 05/25/18 Post Op Day: 1 Assessment/Plan: Assessment: 73 yo male that is s/p ACDF C3/4 and C4/5 with PSF C3-C7 POD #1 Plan: -s/p A/P cervical fusion: doing well, rested well last night. Pt is hungry and "wants to eat" -ok to advance diet as tolerated with ST -orders in place -call with any questions or concerns -wear collar as directed -pt seen by Dr Flores as well -xrays this am -PT/OT/ST ordered -pt and updated Subjective: Awake and alert. NAD. Eating/drinking and voiding. No f/c/n/v/d. No arzate/cp/ sob/abd or gu complaints. Objective: AFVSS/PERRLA/EOMI no droop CN 2-12 grossly intact +lt touch 5/5 BUE/BLE = CDI x 2 neck soft and supple ANTHONY in place Neuro Check Frequency: per routine Urinary Catheter in Place: No Catheter Insertion Date: 05/25/18 - Physician Discussed Patient with Dr.: Mark Patient Seen by : Mark Neurosurgery Physical Exam - Vitals, I&O, Labs I and O 05/25/18 05/26/18 05/27/18 05:59 05:59 05:59 Intake Total 1920 Output Total 2190 Balance -270 Weight 58.967 kg Intake: Oral (ml) 920 IV Intake (ml) 200 IV Infused (ml) 800 Ns 1,000 ml @ 75 mls/hr 580 IV CONT CHANO Rx#: [id number] ceFAZolin 2 GM/DEXTROSE 220 100 ml @ 200 mls/hr IV Q8H CHANO Rx#:[id number] Output: Urine (ml) 2050 Catheter 2050 ANTHONY Drain Output (ml) 140 #1 Neck Patrick Dueñas 60 #1 Posterior Knee 80 Vital Signs Temp Pulse Resp BP Pulse Ox 36.8 C 77 16 135/69 H 93 05/26/18 04:43 05/26/18 04:43 05/26/18 04:43 05/26/18 04:43 05/26/18 04:43 Laboratory Results 05/26/18 04:26 05/26/18 04:26 ICD10 Worksheet Patient Problems: Problems Problem Status Onset Cervical radicular pain Acute Cervical spinal stenosis Acute Arthrodesis status Acute Lumbar radicular pain Acute Lumbar stenosis Acute - ICD10 Problem Qualifiers (1) Cervical spinal stenosis (2) Cervical radicular pain
[2018-05-26] MEDS: SENNOSIDES/DOCUSATE SODIUM TAB PO SCH ×2 (08:56→21:35)
[2018-05-26] MEDS: PANTOPRAZOLE SODIUM 40 MG TAB PO SCH (08:56)
[2018-05-26] MEDS: FAMOTIDINE 20 MG TAB PO SCH ×2 (08:56→21:35)
[2018-05-26] MEDS: metFORMIN HCL 500 MG TAB PO SCH ×2 (08:56→17:11)
[2018-05-26] MEDS: INSULIN REGULAR HUMAN 100 UNIT/ML UNIT SC SCH ×4 (09:16→21:34)
[2018-05-26] MEDS: ROSUVASTATIN CALCIUM 10 MG TAB PO SCH ×2 (09:16→21:35)
--- NOTE | 2018-05-26 10:01 | PDMN ---
Medical Necessity Medical necessity: Pt meets INPT criteria per MD and [facility] S-[facility] Cervical Fusion, Posterior (est. LOS >2 MN s/p ACDF C3/4 and C4/5 with PSF C3-C7).
--- NOTE | 2018-05-26 10:27 | POSTANESTH ---
Post Anesthetic Evaluation Cardiovascular Status: Normal, Stable Respiratory Status: Normal, Stable Level of Consciousness/Mental Status: Can Participate in Eval Pain Control: Adequate, Prn Tx Ordered Nausea/Vomiting Control: Adequate, Prn Tx Ordered Complications Possibly Related to Anesthesia: None Noted
--- NOTE | 2018-05-26 10:29 | ASMTCMCOM ---
CM Note CM Note Notes: Spoke with pt in the rm and with pt's RN. Pt lives independently with and was admitted for cervical fusion surgery on 05/25. Therapies have not yet evaluated, but surgeon has prearranged for [facility] if pt desires. Pt stated he had positive experience with home therapy in the past and would be interested. [facility] promotions representative to meet with patient today. Referral sent. Disposition pending therapy eval. D/C Plan: [facility] Independent v [facility] Date Signed: 05/26/2018 10:28 AM Electronically Signed By:Caitlyn Shelton
[2018-05-26] MEDS: ROPINIROLE HCL 8 MG PO SCH (14:30)
[2018-05-26] MEDS: oxyCODONE IR 5 MG TAB PO PRN (23:41)
[2018-05-27] MEDS: CARBIDOPA/LEVODOPA 25 MG/100 MG TAB PO SCH ×3 (06:27→17:50)
[2018-05-27] MEDS: ACETAMINOPHEN 500 MG TAB PO SCH ×3 (06:27→22:30)
[2018-05-27] MEDS: GABAPENTIN 300 MG CAP PO SCH ×3 (06:28→23:40)
[2018-05-27] MEDS: oxyCODONE IR 5 MG TAB PO PRN ×2 (06:29→22:31)
[2018-05-27] MEDS ORDERED: DIAZEPAM 2 MG TAB PO PRN (08:03)
--- NOTE | 2018-05-27 08:05 | NEUSURGPN ---
Assessment/Plan: Assessment: 73 yo male that is s/p ACDF C3/4 and C4/5 with PSF C3-C7 POD #2 Plan: -s/p A/P cervical fusion: doing well, having some posterior neck pain and phlegm -ok to advance diet as tolerated with ST -Add ice pack and low dose valium for posterior neck pain -DC ANTHONY drain per Dr Cochran -call with any questions or concerns -wear collar as directed -pt d/w Dr Cochran as well -xrays show stable hardware -TEDS, SCDs on -PT/OT/ST ordered -pt and updated -Dispo: likely home tomorrow pending clinical course Subjective: Pt resting in chair, c/o posterior neck pain and has a lot of phlegm Objective: AAOx3 NAD VSS MAEx4 Motor 5/5 BUE C collar on JPx1 Incisions dressed Urinary Catheter in Place: No Catheter Insertion Date: 05/25/18 - Physician Discussed Patient with : Mark Neurosurgery Physical Exam - Vitals, I&O, Labs I and O 05/26/18 05/27/18 05/28/18 05:59 05:59 05:59 Intake Total 1920 2400 Output Total 2190 675 Balance -270 1725 Weight 58.967 kg 58.967 kg Intake: Oral (ml) 920 2400 IV Intake (ml) 200 IV Infused (ml) 800 Ns 1,000 ml @ 75 mls/hr 580 IV CONT CHANO Rx#: [id number] ceFAZolin 2 GM/DEXTROSE 220 100 ml @ 200 mls/hr IV Q8H CHANO Rx#:[id number] Output: Urine (ml) 2050 600 Catheter 2050 Urinal 600 ANTHONY Drain Output (ml) 140 75 #1 Neck Patrick Dueñas 60 75 #1 Posterior Knee 80 Other: Intake Quantity Yes Sufficient Number of Voids Toilet 2 Urinal 1 Vital Signs Temp Pulse Resp BP Pulse Ox 36.8 C 80 17 139/81 H 92 05/27/18 07:49 05/27/18 07:49 05/27/18 07:49 05/27/18 07:49 05/27/18 07:49 Laboratory Results 05/26/18 04:26 05/26/18 04:26 ICD10 Worksheet Patient Problems: Problems Problem Status Onset Cervical radicular pain Acute Cervical spinal stenosis Acute Arthrodesis status Acute Lumbar radicular pain Acute Lumbar stenosis Acute
[2018-05-27] MEDS: PANTOPRAZOLE SODIUM 40 MG TAB PO SCH (08:32)
[2018-05-27] MEDS: ROPINIROLE HCL 8 MG PO SCH (08:32)
[2018-05-27] MEDS: metFORMIN HCL 500 MG TAB PO SCH ×2 (08:32→17:50)
[2018-05-27] MEDS: SENNOSIDES/DOCUSATE SODIUM TAB PO SCH ×2 (08:32→23:39)
[2018-05-27] MEDS: FAMOTIDINE 20 MG TAB PO SCH ×2 (08:33→23:39)
[2018-05-27] MEDS: INSULIN REGULAR HUMAN 100 UNIT/ML UNIT SC SCH ×4 (08:33→23:39)
[2018-05-27] MEDS ORDERED: guaiFENesin 600 MG TAB.ER PO PRN (14:21)
--- NOTE | 2018-05-27 16:27 | ASMTCMCOM ---
CM Note CM Note Notes: D/c plan remains home with [facility], no orders needed at [facility] has protocol with MD office. CM to follow. Date Signed: 05/27/2018 04:26 PM Electronically Signed By:JUNIOR Galicia
[2018-05-27] MEDS: ROSUVASTATIN CALCIUM 10 MG TAB PO SCH (22:31)
[2018-05-28] MEDS: GABAPENTIN 300 MG CAP PO SCH (06:29)
[2018-05-28] MEDS: ACETAMINOPHEN 500 MG TAB PO SCH (06:30)
[2018-05-28] MEDS: CARBIDOPA/LEVODOPA 25 MG/100 MG TAB PO SCH ×2 (06:30→12:26)
[2018-05-28] MEDS: oxyCODONE IR 5 MG TAB PO PRN (06:35)
[2018-05-28 08:01] VITALS: BP 138/74
[2018-05-28] MEDS: INSULIN REGULAR HUMAN 100 UNIT/ML UNIT SC SCH (08:58)
[2018-05-28] MEDS ORDERED: ENOXAPARIN 40 MG/0.4 ML SYR SC SCH (09:00)
[2018-05-28] MEDS: metFORMIN HCL 500 MG TAB PO SCH (09:01)
[2018-05-28] MEDS: FAMOTIDINE 20 MG TAB PO SCH (09:02)
[2018-05-28] MEDS: PANTOPRAZOLE SODIUM 40 MG TAB PO SCH (09:03)
[2018-05-28] MEDS: ROPINIROLE HCL 8 MG PO SCH (09:04)
[2018-05-28] MEDS: SENNOSIDES/DOCUSATE SODIUM TAB PO SCH (09:07)
--- NOTE | 2018-05-28 10:27 | NEUSURGPN ---
Date of Surgery: 05/25/18 Post Op Day: 3 Assessment/Plan: Assessment: 73 yo male that is s/p ACDF C3/4 and C4/5 with PSF C3-C7 POD #3 Plan: -Add ice pack and low dose Valium for posterior neck pain -wear collar as directed -pt d/w Dr Flores as well -xrays show stable hardware -TEDS, SCDs -PT/OT/ST ordered -DC home today Discussed patient with Dr Flores Subjective: Sitting in chair, doing well Objective: AxO x4 PERRLA 5/5 BUE, BLE Incisions x2 CDI, dried blood drainage on posterior steri strips Collar in place Neuro Check Frequency: per routine Urinary Catheter in Place: No Catheter Insertion Date: 05/25/18 - Physician Discussed Patient with : Mark Neurosurgery Physical Exam - Vitals, I&O, Labs I and O 05/27/18 05/28/18 05/29/18 05:59 05:59 05:59 Intake Total 2400 1500 Output Total 675 25 Balance 1725 1475 Weight 58.967 kg Intake: Oral (ml) 2400 1500 Output: Urine (ml) 600 Urinal 600 ANTHONY Drain Output (ml) 75 25 #1 Neck Patrick Dueñas 75 25 Other: Intake Quantity Yes Yes Sufficient Number of Voids Toilet 2 3 Urinal 1 Vital Signs Temp Pulse Resp BP Pulse Ox 37.0 C 92 16 138/74 H 93 05/28/18 08:00 05/28/18 08:00 05/28/18 08:00 05/28/18 08:00 05/28/18 08:00 Laboratory Results 05/26/18 04:26 05/26/18 04:26 ICD10 Worksheet Patient Problems: Problems Problem Status Onset Cervical radicular pain Acute Cervical spinal stenosis Acute Arthrodesis status Acute Lumbar radicular pain Acute Lumbar stenosis Acute
--- NOTE | 2018-05-28 10:33 | PDIAF ---
- Diagnosis Diagnosis: S/P ACDF C3-4 adn C4-5 with PSF C3-7 Code Status: Full Code - Medication Management Discharge Medications: Medications to Continue on Transfer Aspirin EC [Aspirin EC 81 mg (*)] 81 mg PO DAILY 11/26/16 [Last Taken 05/18/18] Rosuvastatin Calcium [Crestor 5mg] 5 mg PO HS 11/26/16 [Last Taken 05/24/18 19: 00] metFORMIN HCL [Glucophage 500 mg (*)] 500 mg PO BIDMEAL 11/26/16 [Last Taken 08:00] Carbidopa/Levodopa 25/100Mg [Sinemet 25/100 MG (*)] 2 tab PO TID@, [Last Taken 05/25/18 10:30] Cetirizine [ZyrTEC 10 mg (*)] 10 mg PO DAILY PRN 05/10/18 [Last Taken 05/18/18] Multivitamins [Multivitamin (*)] 1 each PO DAILY 05/10/18 [Last Taken 05/18/18] rOPINIRole HCL [Ropinirole ER] 8 mg PO DAILY 05/10/18 [Last Taken 05/25/18 08:00 ] Omeprazole 20 mg PO DAILY 05/25/18 [Last Taken 05/25/18 06:00] Acetaminophen [Tylenol ES 500 mg (*)] 1,000 mg PO Q8HRS tab 05/28/18 [Last Taken Unknown] Diazepam [Valium 2 MG (*)] 2 mg PO Q6HRS PRN #60 tab 05/28/18 [Last Taken Unknown] Sennosides/Docusate Sodium [Senokot-S] 1 - 2 tab PO BID tab 05/28/18 [Last Taken Unknown] oxyCODONE IR [Oxycodone Ir (*)] 5 - 10 mg PO Q4HRS PRN #60 tab 05/28/18 [Last Taken Unknown] Discharge Medications: Refer to the Discharge Home Medication list for PRN reason. PICC Care - Routine: N/A - Orders Services needed: Home Care, Certified Injury Prevention Coordinator, Physical Therapy, Occupational Therapy Home Care Face to Face: I certify that this patient was under my care and that I had the required [id number] encounter meeting the encounter requirements on the discharge day. My findings support the fact that the patient is homebound as defined in Home Care Face to Face Continued: CMS Chapter 7 Medicare Benefits Manual 30.1.1 , The condition of the patient is such that there exists a normal inability to leave home and consequently, leaving home would require a considerable and taxing effort. Diet Texture: Regular Texture Diet, Thin Liquids, Meds Whole w/Liquids Activity/Weight Bearing Restrictions: No bending or twisting neck. Do not lift greater than 10 pounds. Wear collar Additional Instructions: No bending or twisting neck Do not lift greater than 10 pounds Wear collar at all times Ok to shower, leave steri strips in place - Follow Up Care Current Providers and Referrals: Jeri Gandhi [Primary Care Provider] - Dyana Flores MD [Medical Doctor] - follow up in 2 weeks
--- NOTE | 2018-05-28 11:48 | ASDISCHSUM ---
Discharge Information Plan Status:Home with Home Health Medically Cleared to Leave:05/28/2018 Discharge Date:05/28/2018 CM D/C Disposition:Home Health Service ADT D/C Disposition:[id number] Projected Discharge Date:05/27/2018 11:00 AM Transportation at D/C:Family Discharge Delay Reason: Follow-Up Date:05/27/2018 11:00 AM Discharge Slot: Final Diagnosis:Cervical Stenosis Placement Information Referral Type:*Home Health Care Services Referral ID:[id number] Provider Name:[facility] ([facility] Address 1:[address] [address] Address 2: City:[place] Selection Factors: State:[place] Patient Contact Information Contact Name:MARISOL Relationship: Address:[address] Work Phone: City:[place] Alternate Phone: State/Zip Code:[place] [address] Email: Financial Information Financial Class:Medicare Primary Plan Desc:MEDICARE INPATIENT Primary Plan Number:[id number] Secondary Plan Desc:[facility] LOC[facility] Secondary Plan Number:[id number] Assessment Information LACE LACE Length of stay for Answers: 3 days current admission Acuity / Level of Answers: Yes Care: Did the patient have an inpatient admission? Comorbidities - select Answers: Any tumor (including all that apply lymphoma or leukemia) Coronary Artery Disease Diabetes (uncontrolled or controlled) Opioid dependence / Chronic pain Other Notes: Parkinson's disease, cervical stenosis # of Emergency department Answers: 0 visits in the last 6 months Score: 16 Date Signed: 05/28/2018 11:46 AM Electronically Signed By:Caitlyn Shelton [facility] Progress Note CM Note CM Note Notes: Spoke with pt in the and with pt's RN. Pt lives independently with and was admitted for cervical fusion surgery on 05/25. Therapies have not yet evaluated, but surgeon has prearranged for [facility] if pt desires. Pt stated he had positive experience with home therapy in the past and would be interested. [facility] hardware supplies sales representative to meet with patient today. Referral sent. Disposition pending therapy eval. D/C Plan: TBD Independent v [facility] Date Signed: 05/26/2018 10:28 AM Electronically Signed By:Caitlyn Shelton [facility] CM Progress Note CM Note CM Note Notes: D/c plan remains home with [facility], no orders needed at [facility] has protocol with MD office. CM to follow. Date Signed: 05/27/2018 04:26 PM Electronically Signed By:JUNIOR Galicia Case Management Discharge Plan Note Case Management Discharge Discharge Order Complete? Answers: Yes Patient to Obtain Answers: via Family Medications Transportation Arranged Answers: Family/Friends Transport will Pick (Date 05/28/2018 12:00 AM & Time) Agency/Facility Transfer Answers: Yes Report Printed & Faxed to Receiving Agency Family Notified Answers: Yes Notes: in the room Discharge Comments Notes: Pt to discharge today, lives independently with . Will be followed by [facility]. Updated referral sent to agency. Agency notified of discharge. No further CM needs noted at this time. Date Signed: 05/28/2018 11:45 AM Electronically Signed By:Caitlyn Shelton Intervention Information
== END 2018-05-28 13:22 | disposition home health service (06) | DRG 472 ==
LOC: F3N 09:15
PROVIDERS: ADMIT Neurological Surgery; ATTEND Neurological Surgery
PROC: 01N10ZZ Release Cervical Nerve, Open Approach (ICD-10-PCS; principal; 2018-05-25 11:00)
PROC: 0RG20A0 Fusion of 2 or more Cervical Vertebral Joints with Interbody Fusion Device, Anterior Approach, Anterior Column, Open Approach (ICD-10-PCS; principal; 2018-05-25 11:00)
PROC: 0RT30ZZ Resection of Cervical Vertebral Disc, Open Approach (ICD-10-PCS; principal; 2018-05-25 11:00)
PROC: 3E0U0GB Introduction of Recombinant Bone Morphogenetic Protein into Joints, Open Approach (ICD-10-PCS; principal; 2018-05-25 11:00)
PROC: 0PB30ZZ Excision of Cervical Vertebra, Open Approach (ICD-10-PCS; principal; 2018-05-25 11:00)
PROC: 0PP304Z Removal of Internal Fixation Device from Cervical Vertebra, Open Approach (ICD-10-PCS; principal; 2018-05-25 11:00)
PROC: 0RG207J Fusion of 2 or more Cervical Vertebral Joints with Autologous Tissue Substitute, Posterior Approach, Anterior Column, Open Approach (ICD-10-PCS; principal; 2018-05-25 11:00)
DX: M47.22 Other spondylosis with radiculopathy, cervical region (principal); M96.0 Pseudarthrosis after fusion or arthrodesis; M48.02 Spinal stenosis, cervical region; Z98.1 Arthrodesis status; I25.10 Atherosclerotic heart disease of native coronary artery without angina pectoris; Z95.5 Presence of coronary angioplasty implant and graft; G20 Parkinson's disease; E11.9 Type 2 diabetes mellitus without complications; E78.5 Hyperlipidemia, unspecified; Z86.73 Personal history of transient ischemic attack (TIA), and cerebral infarction without residual deficits
CPT/HCPCS: 92526-GN; 92610-GN; 97116-GP; 97161-GP; 97166-GO; 97535-GO; C1713; G8978-GP-CI; G8979-GP-CI; G8980-GP-CI; G8987-GO-CJ; G8988-GO-CI; G8996-GN-CI; G8997-GN-CI; J0171; J0330; J0690; J1170; J1650; J1815; J2250; J2405; J2704; J3010